=== PATIENT | female | born 1940 | race Caucasian/White ===

== ENCOUNTER 2020-06-24 15:59 | Observation (INO) ==
[2020-06-25] MEDS ORDERED: 0.9 % Sodium Chloride 500 ML ONE (17:46)
[2020-06-25] MEDS ORDERED: amLODIPine 5 MG TABLET PO SCH (19:00)
[2020-06-25] MEDS ORDERED: Metoprolol XL (24 HR) Succ 50 MG TAB.ER.24H PO SCH (19:00)
[2020-06-25] MEDS ORDERED: cloNIDine HCL 0.1 MG TABLET PO SCH (21:00)
[2020-06-25] MEDS ORDERED: *HR* Promethazine 25 MG/ML VIAL IVP PRN (21:04)
[2020-06-25] MEDS ORDERED: Naloxone 0.4 MG/ML INJ IVP PRN (21:04)
[2020-06-25] MEDS ORDERED: Acetaminophen 325 MG TABLET PO PRN (21:04)
[2020-06-25 22:45] LABS: Potassium 4.3 mEq/L (3.5-5.1)
[2020-06-26 01:09] VITALS: BP 150/69
[2020-06-26 02:29] LABS: Basophils % 0.6 %; Eosinophils # 0.1 K/mcL (0.0-0.6); Eosinophils % 1.2 %; Hematocrit 29.7 % (35.3-44.9); Hemoglobin 9.6 g/dL (11.5-15.4); Immature Granulocytes % 6.5 % (0-4); Lymphocytes # 1.8 K/mcL (0.6-4.6); Lymphocytes % 35.3 %; Mean Corpuscular HGB Conc 32.3 g/dL (31.6-35.5); Mean Corpuscular Hemoglobin 30.8 pg (28.0-33.3); Mean Corpuscular Volume 95.2 fL (83.0-100.0); Mean Platelet Volume 11.3 fL (9.4-12.4); Monocytes # 0.8 K/mcL (0.0-1.3); Monocytes % 14.7 %; Neutrophils # 2.1 K/mcL (1.6-8.9); Nucleated Red Blood Cells 4.5 /100 WBC (0); Platelet Count 204 K/mcL (140-400); Red Blood Count 3.12 M/mcL (3.82-4.97); Red Cell Distribution Width 19.7 % (11.5-14.5); Segmented Neutrophils % 41.7 %; White Blood Count 5.1 K/mcL (4.3-11.1)
[2020-06-26 02:32] LABS: Prothrombin Time 11.3 Seconds (9.4-12.1)
[2020-06-26 02:56] LABS: Calcium 9.4 mg/dL (8.6-10.3); Magnesium 1.7 mg/dL (1.6-2.6); Phosphorous 3.9 mg/dL (2.7-4.5); Potassium 4.4 mEq/L (3.5-5.1)
== END 2020-06-26 08:01 | disposition home or self-care (01) ==
LOC: INFINJ 15:59 → 3BNU 15:59
PROVIDERS: ADMIT Student in an Organized Health Care Education/Training Program; ATTEND Student in an Organized Health Care Education/Training Program

== ENCOUNTER 2021-07-02 19:47 | Observation (INO) ==
[2021-07-02] MEDS ORDERED: 0.9 % Sodium Chloride 500 ML IVC ONE (22:25)
[2021-07-02 22:55] LABS: Hematocrit 29.9 % (35.3-44.9); Hemoglobin 9.4 g/dL (11.5-15.4); Mean Corpuscular HGB Conc 31.4 g/dL (31.6-35.5); Mean Corpuscular Hemoglobin 29.1 pg (28.0-33.3); Mean Corpuscular Volume 92.6 fL (83.0-100.0); Mean Platelet Volume 10.4 fL (9.4-12.4); Platelet Count 112 K/mcL (140-400); Red Blood Count 3.23 M/mcL (3.82-4.97); Red Cell Distribution Width 20.5 % (11.5-14.5)
[2021-07-02 23:15] LABS: Calcium 9.6 mg/dL (8.6-10.3); Potassium 4.2 mEq/L (3.5-5.1)
[2021-07-02 23:40] LABS: Bacteria,Urine Few per hpf (None-Few); Bilirubin,Urine Negative (Negative); Blood,Urine Trace (Negative); Clarity,Urine Clear (Clear); Color,Urine Colorless (Yellow); Glucose,Urine (UA) Normal (Normal); Ketones,Urine Negative (Negative); Leukocyte Esterase,Urine Negative (Negative); Nitrite,Urine Positive (Negative); Protein,Urine 100 mg/dL (Neg-Trace); RBC,Urine 0-3 per hpf (0-3); Specific Gravity,Urine 1.008 (1.010-1.025); Squamous Epithelial Cell,Urine Few per hpf (None-Few); Urobilinogen,Urine Normal (Normal)
[2021-07-02] MEDS ORDERED: cefTRIAXone 1,000 MG in Water for inj. (sterile) 10 ML IVP ONE (23:41)
[2021-07-03] MEDS ORDERED: Naloxone 0.4 MG/ML INJ IVP PRN (00:56)
[2021-07-03] MEDS ORDERED: Ondansetron 4 MG/2 ML VIAL IVP PRN (00:56)
[2021-07-03] MEDS ORDERED: D5% in Water 1,000 ML IVC PRN (00:57)
[2021-07-03] MEDS ORDERED: *HR* Dextrose 50 % in Water (Vial) 50 ML VIAL IVP PRN (00:57)
[2021-07-03] MEDS ORDERED: Dextrose Gel 15 GM/37.5 ML TUBE PO PRN ×2 (00:57)
[2021-07-03] MEDS ORDERED: *HR* Metoprolol 5 MG/5 ML VIAL IVP PRN (01:47)
[2021-07-03] MEDS: Acetaminophen 325 MG TABLET PO PRN ×2 (05:56→11:46)
[2021-07-03] MEDS: Insulin LISPRO 300 UNITS/3 ML VIAL SUBQ SCH ×3 (07:49→16:44)
[2021-07-03] MEDS: amLODIPine 5 MG TABLET PO SCH (09:13)
[2021-07-03] MEDS: Metoprolol XL (24 HR) Succ 50 MG TAB.ER.24H PO SCH (09:13)
[2021-07-03] MEDS: cefTRIAXone 1,000 MG in Water for inj. (sterile) 10 ML IVP SCH (09:33)
[2021-07-03] MEDS: cloNIDine HCL 0.1 MG TABLET PO SCH ×2 (13:50→21:51)
[2021-07-03] MEDS ORDERED: Insulin LISPRO 300 UNITS/3 ML VIAL SUBQ SCH (21:00)
[2021-07-03] MEDS ORDERED: Melatonin 3 MG TABLET PO PRN (22:31)
[2021-07-04 03:35] LABS: Basophils % 0.4 %; Eosinophils # 0.1 K/mcL (0.0-0.6); Hematocrit 27.2 % (35.3-44.9); Hemoglobin 8.4 g/dL (11.5-15.4); Immature Granulocytes % 5.3 % (0-4); Lymphocytes # 1.6 K/mcL (0.6-4.6); Lymphocytes % 30.6 %; Mean Corpuscular HGB Conc 30.9 g/dL (31.6-35.5); Mean Corpuscular Hemoglobin 28.9 pg (28.0-33.3); Mean Corpuscular Volume 93.5 fL (83.0-100.0); Monocytes # 0.8 K/mcL (0.0-1.3); Monocytes % 16.2 %; Neutrophils # 2.4 K/mcL (1.6-8.9); Nucleated Red Blood Cells 6.4 /100 WBC (0); Platelet Count 109 K/mcL (140-400); Red Blood Count 2.91 M/mcL (3.82-4.97); Red Cell Distribution Width 20.4 % (11.5-14.5); Segmented Neutrophils % 46.5 %; White Blood Count 5.1 K/mcL (4.3-11.1)
[2021-07-04 03:54] LABS: Magnesium 1.9 mg/dL (1.6-2.6); Phosphorous 3.7 mg/dL (2.7-4.5); Potassium 4.2 mEq/L (3.5-5.1)
[2021-07-04 04:18] LABS: Anisocytosis 2+ (Not Present); Hypochromasia Present (Not Present); Platelet Estimate Slight Decrease (Normal)
[2021-07-04 04:19] LABS: Polychromasia 1+ (Not Present)
[2021-07-04] MEDS: Acetaminophen 325 MG TABLET PO PRN (08:09)
[2021-07-04] MEDS: cloNIDine HCL 0.1 MG TABLET PO SCH (08:09)
[2021-07-04] MEDS: Metoprolol XL (24 HR) Succ 50 MG TAB.ER.24H PO SCH (08:09)
[2021-07-04] MEDS: Insulin LISPRO 300 UNITS/3 ML VIAL SUBQ SCH (08:09)
[2021-07-04] MEDS: amLODIPine 5 MG TABLET PO SCH (08:09)
[2021-07-04] MEDS ORDERED: allopurinoL 100 MG TABLET PO SCH (09:00)
[2021-07-04] MEDS: cefTRIAXone 1,000 MG in Water for inj. (sterile) 10 ML IVP SCH (09:51)
[2021-07-04 11:00] VITALS: BP 97/60; PULSE 64; TEMP 98.1; O2SAT 100
== END 2021-07-04 12:36 | disposition home or self-care (01) ==
LOC: EMEROOARM 19:47 → 3BNU 19:47 → SUATTDRO 23:54 → 3BNU 07-03 01:00
PROVIDERS: ADMIT Family Medicine; ATTEND Internal Medicine

== ENCOUNTER 2022-05-25 13:37 | Inpatient (IN) ==
[2022-05-25 14:13] LABS: Hemoglobin 6.7 g/dL (11.5-15.4)
[2022-05-25 14:15] LABS: Hematocrit 20.6 % (35.3-44.9); Immature Platelets 5.5 % (1.1-6.1); Mean Corpuscular HGB Conc 32.5 g/dL (31.6-35.5); Mean Corpuscular Hemoglobin 29.9 pg (28.0-33.3); Mean Platelet Volume 11.1 fL (9.4-12.4); Nucleated Red Blood Cells 6.2 /100 WBC (0); Red Blood Count 2.24 M/mcL (3.82-4.97); White Blood Count 6.1 K/mcL (4.3-11.1)
[2022-05-25 14:27] LABS: Alanine Aminotransferase 16 Units/L (7-52); Albumin 4.3 g/dL (3.5-5.7); Albumin/Globulin Ratio 1.5 (1.1-2.2); Alkaline Phosphatase 91 Units/L (34-104); Aspartate Amino Transferase 25 Units/L (13-39); BUN/Creatinine Ratio 24 (6-26); Bilirubin,Total 0.6 mg/dL (0.3-1.0); Blood Urea Nitrogen 41 mg/dL (8-23); Calcium 9.6 mg/dL (8.6-10.3); Carbon Dioxide 21 mEq/L (23-29); Chloride 107 mEq/L (98-107); Globulin 2.8 g/dL (2.4-3.5); Glucose 74 mg/dL (70-105); Osmolality,Calculated 291 (280-300); Potassium 5.4 mEq/L (3.5-5.1); Sodium 136 mEq/L (136-145); Total Protein 7.1 g/dL (6.4-8.9); Troponin I < 0.03 ng/mL (< 0.04); eGFR For African Americans 35 (> 60); eGFR For Non-African Americans 29 (> 60)
[2022-05-25 14:44] LABS: Platelet Count 44 K/mcL (140-400)
[2022-05-25 14:47] LABS: Lymphocytes # 2.4 K/mcL (0.6-4.6); Monocytes # 0.2 K/mcL (0.0-1.3); Neutrophils # 3.3 K/mcL (1.6-8.9); Platelet Estimate Decreased (Normal)
[2022-05-25] MEDS ORDERED: cefTRIAXone 1,000 MG in Water for inj. (sterile) 10 ML IVP ONE (16:22)
[2022-05-25] MEDS ORDERED: Melatonin 3 MG TABLET PO PRN (17:11)
[2022-05-25] MEDS ORDERED: Naloxone 0.4 MG/ML INJ IVP PRN (17:11)
[2022-05-25] MEDS ORDERED: Ondansetron ODT 4 MG TAB.RAPDIS SL PRN (17:11)
[2022-05-25 17:28] LABS: % Iron Saturation 34 % (15-50); Iron 130 mcg/dL (50-170); Transferrin 276 mg/dL (203-362)
[2022-05-25 17:46] LABS: Ferritin 442 ng/mL (10-120)
[2022-05-25 17:54] LABS: Folate > 22.3 ng/mL (3.0-16.0); Vitamin B12 794 pg/mL (250-1100)
[2022-05-25] MEDS ORDERED: SODIUM ZIRCONIUM CYCLOSILICATE 5 GM POWD.PACK PO ONE (18:15)
[2022-05-25 19:03] LABS: Bacteria,Urine Few per hpf (None-Few); Bilirubin,Urine Negative (Negative); Blood,Urine Trace (Negative); Clarity,Urine Turbid (Clear); Color,Urine Light-Yellow (Yellow); Glucose,Urine (UA) Normal (Normal); Ketones,Urine Negative (Negative); Leukocyte Esterase,Urine Large (Negative); Nitrite,Urine Positive (Negative); PH,Urine 6.5 pH Units (5.0-8.0); Protein,Urine 100 mg/dL (Neg-Trace); RBC,Urine TNTC per hpf (0-3); Specific Gravity,Urine 1.008 (1.010-1.025); Urobilinogen,Urine Normal (Normal); WBC,Urine TNTC per hpf (0-3)
[2022-05-25] MEDS ORDERED: D5% in Water 1,000 ML IVC PRN (19:08)
[2022-05-25] MEDS ORDERED: *HR* Dextrose 50 % in Water (Syg) 50 ML SYRINGE IVP PRN (19:08)
[2022-05-25] MEDS ORDERED: Dextrose Gel 15 GM/37.5 ML TUBE PO PRN ×2 (19:08)
[2022-05-25] MEDS ORDERED: *HR* Labetalol 20 MG/4 ML SYRINGE IVP ONE (19:59)
[2022-05-26] MEDS: Acetaminophen 325 MG TABLET PO PRN ×2 (00:02→21:19)
[2022-05-26 07:16] LABS: Red Cell Distribution Width 18.9 % (11.5-14.5)
[2022-05-26 07:18] LABS: Hematocrit 19.3 % (35.3-44.9); Hemoglobin 6.1 g/dL (11.5-15.4); Immature Platelets 5.6 % (1.1-6.1); Mean Corpuscular HGB Conc 31.6 g/dL (31.6-35.5); Mean Corpuscular Hemoglobin 29.3 pg (28.0-33.3); Mean Corpuscular Volume 92.8 fL (83.0-100.0); Mean Platelet Volume 10.1 fL (9.4-12.4); Nucleated Red Blood Cells 6.2 /100 WBC (0); Red Blood Count 2.08 M/mcL (3.82-4.97)
[2022-05-26] MEDS ORDERED: 0.9 % Sodium Chloride 250 ML ONE (07:43)
[2022-05-26 07:45] LABS: Calcium 9.4 mg/dL (8.6-10.3)
[2022-05-26] MEDS: Insulin LISPRO 300 UNITS/3 ML VIAL SUBQ SCH ×3 (07:55→16:39)
[2022-05-26 08:13] LABS: Platelet Count 36 K/mcL (140-400)
[2022-05-26 10:14] LABS: Eosinophils # 0.1 K/mcL (0.0-0.6); Lymphocytes # 1.4 K/mcL (0.6-4.6); Neutrophils # 1.9 K/mcL (1.6-8.9)
[2022-05-26 10:15] LABS: Monocytes # 0.5 K/mcL (0.0-1.3); Platelet Estimate Marked Decrease (Normal)
[2022-05-26 10:16] LABS: Anisocytosis 1+ (Not Present); Microcytosis Present (Not Present)
[2022-05-26 13:58] LABS: Hematocrit 22.9 % (35.3-44.9); Hemoglobin 7.3 g/dL (11.5-15.4)
[2022-05-26] MEDS ORDERED: cefTRIAXone 1,000 MG in 0.9 % Sodium Chloride 10 ML IVP SCH (16:00)
[2022-05-26 16:32] LABS: Calcium 9.6 mg/dL (8.6-10.3); Potassium 4.7 mEq/L (3.5-5.1)
[2022-05-26] MEDS: cloNIDine HCL 0.1 MG TABLET PO SCH (21:19)
[2022-05-27 07:06] LABS: Hematocrit 21.6 % (35.3-44.9); Hemoglobin 6.8 g/dL (11.5-15.4); Mean Corpuscular HGB Conc 31.5 g/dL (31.6-35.5); Mean Corpuscular Hemoglobin 28.7 pg (28.0-33.3); Mean Corpuscular Volume 91.1 fL (83.0-100.0); Red Blood Count 2.37 M/mcL (3.82-4.97)
[2022-05-27 07:08] LABS: Immature Platelets 4.7 % (1.1-6.1); Mean Platelet Volume 8.7 fL (9.4-12.4); White Blood Count 4.4 K/mcL (4.3-11.1)
[2022-05-27 07:15] LABS: Platelet Count 34 K/mcL (140-400)
[2022-05-27 07:41] LABS: Calcium 9.3 mg/dL (8.6-10.3); Magnesium 1.8 mg/dL (1.6-2.6); Phosphorous 4.1 mg/dL (2.7-4.5); Potassium 4.8 mEq/L (3.5-5.1)
[2022-05-27 08:05] LABS: Basophils # 0.1 K/mcL (0.0-0.2); Eosinophils # 0.2 K/mcL (0.0-0.6); Lymphocytes # 1.5 K/mcL (0.6-4.6); Monocytes # 0.3 K/mcL (0.0-1.3); Neutrophils # 2.4 K/mcL (1.6-8.9)
[2022-05-27 08:06] LABS: Microcytosis Present (Not Present); Platelet Estimate Decreased (Normal); Polychromasia 1+ (Not Present)
[2022-05-27] MEDS ORDERED: 0.9 % Sodium Chloride 250 ML ONE (10:21)
[2022-05-27] MEDS: amLODIPine 5 MG TABLET PO SCH (10:44)
[2022-05-27] MEDS: Metoprolol XL (24 HR) Succ 50 MG TAB.ER.24H PO SCH (10:44)
[2022-05-27] MEDS: cloNIDine HCL 0.1 MG TABLET PO SCH ×2 (10:44→19:46)
[2022-05-27] MEDS: Iron Polysaccharide Complex 150 MG CAPSULE PO SCH (10:44)
[2022-05-27] MEDS: allopurinoL 100 MG TABLET PO SCH (10:44)
[2022-05-27] MEDS: Insulin LISPRO 300 UNITS/3 ML VIAL SUBQ SCH ×3 (10:46→16:59)
[2022-05-27] MEDS: Artificial Tears SOLN 15 ML BOTTLE BOTH EYES SCH (12:12)
[2022-05-27] MEDS: Amoxicillin/Clavulanate 500 MG TABLET PO SCH (17:19)
[2022-05-28 03:50] LABS: Hemoglobin 7.2 g/dL (11.5-15.4)
[2022-05-28 03:52] LABS: Hematocrit 22.2 % (35.3-44.9); Immature Platelets 5.1 % (1.1-6.1); Mean Corpuscular HGB Conc 32.4 g/dL (31.6-35.5); Mean Corpuscular Volume 89.5 fL (83.0-100.0); Mean Platelet Volume 11.5 fL (9.4-12.4); Nucleated Red Blood Cells 2.9 /100 WBC (0); Red Blood Count 2.48 M/mcL (3.82-4.97); White Blood Count 4.5 K/mcL (4.3-11.1)
[2022-05-28 04:06] LABS: Platelet Count 33 K/mcL (140-400)
[2022-05-28 04:09] LABS: Calcium 9.1 mg/dL (8.6-10.3); Potassium 4.4 mEq/L (3.5-5.1)
[2022-05-28 04:20] LABS: Platelet Estimate Marked Decrease (Normal)
[2022-05-28 04:22] LABS: Anisocytosis 1+ (Not Present); Lymphocytes # 1.4 K/mcL (0.6-4.6); Microcytosis Present (Not Present); Monocytes # 0.5 K/mcL (0.0-1.3); Neutrophils # 2.7 K/mcL (1.6-8.9); Polychromasia 1+ (Not Present)
[2022-05-28] MEDS: Insulin LISPRO 300 UNITS/3 ML VIAL SUBQ SCH ×2 (08:03→12:48)
[2022-05-28] MEDS: Metoprolol XL (24 HR) Succ 50 MG TAB.ER.24H PO SCH (08:56)
[2022-05-28] MEDS: allopurinoL 100 MG TABLET PO SCH (08:56)
[2022-05-28] MEDS: amLODIPine 5 MG TABLET PO SCH (08:56)
[2022-05-28] MEDS: Amoxicillin/Clavulanate 500 MG TABLET PO SCH (08:56)
[2022-05-28] MEDS: cloNIDine HCL 0.1 MG TABLET PO SCH (08:56)
[2022-05-28] MEDS: Artificial Tears SOLN 15 ML BOTTLE BOTH EYES SCH (08:57)
[2022-05-28] MEDS: Iron Polysaccharide Complex 150 MG CAPSULE PO SCH (09:01)
[2022-05-28 11:49] VITALS: BP 169/73; PULSE 79; TEMP 98.8; O2SAT 96
== END 2022-05-28 13:31 | disposition home or self-care (01) | DRG 812 ==
LOC: 3ANU 13:37 → EMEROOARM 13:37 → SUATTDRO 17:20 → 3ANU 18:23
PROVIDERS: ADMIT Internal Medicine; ATTEND Student in an Organized Health Care Education/Training Program